=== PATIENT | male | born 1960 | race Caucasian/White ===

== ENCOUNTER 2024-07-26 19:41 | Emergency (ER) | payer MEDICARE, OTHER ==
[2024-07-26] MEDS ORDERED: Sodium Chloride 0.9% 10 ML Syringe FLUSH PRN (19:59)
[2024-07-26 20:08] LABS: BASOPHILS PERCENT AUTO 0.3 % (0.3-3.8); EOSINOPHILS ABSOLUTE AUTO 0.1 x10-3/uL (0.0-0.6); EOSINOPHILS PERCENT AUTO 1.1 % (0.1-6.8); HEMATOCRIT 45.8 % (38.3-50.1); HEMOGLOBIN 15.2 g/dL (12.9-17.7); LYMPHOCYTES ABSOLUTE AUTO 1.1 x10-3/uL (0.5-4.5); LYMPHOCYTES PERCENT AUTO 9.4 % (15.8-45.3); MEAN CORPUSCULAR HEMOGLOBIN 30.2 pg (27.0-33.3); MEAN CORPUSCULAR HGB CONC 33.1 g/dL (28.7-35.3); MEAN CORPUSCULAR VOLUME 91.1 fL (80.8-98.7); MEAN PLATELET VOLUME 8.3 fL (6.7-11.0); MONOCYTES ABSOLUTE AUTO 0.8 x10-3/uL (0.0-1.2); MONOCYTES PERCENT AUTO 6.9 % (5.5-15.2); NEUTROPHILS ABSOLUTE AUTO 10.1 x10-3/uL (1.7-6.9); NEUTROPHILS PERCENT AUTO 82.4 % (40.3-71.8); PLATELET COUNT,PLT 210 x10(3)uL (117-477); RED BLOOD CELL COUNT 5.03 x10(6)uL (3.90-5.90); RED CELL DISTRIBUTION WIDTH 14.3 % (12.4-15.0); WHITE BLOOD CELL COUNT,WBC 12.2 x10-3/uL (3.2-10.1)
[2024-07-26 20:12] LABS: BILIRUBIN,URINE NEGATIVE (NEGATIVE); GLUCOSE,URINE NORMAL (NORMAL); KETONES,URINE NEGATIVE (NEGATIVE); LEUKOCYTE ESTERASE,URINE LARGE (NEGATIVE); NITRITE,URINE NEGATIVE (NEGATIVE); OCCULT BLOOD,URINE MODERATE (NEGATIVE); PROTEIN,URINE TRACE mg/dL (NEGATIVE); UROBILINOGEN,URINE NORMAL (NEGATIVE)
[2024-07-26] MEDS: Sodium Chloride 0.9% 1,000 ML IV ONE (20:16)
[2024-07-26] MEDS: Tamsulosin 0.4 MG Cap.ER PO ONE (20:16)
[2024-07-26 20:17] LABS: BLOOD UREA NITROGEN,BUN 30 mg/dL (7-18); BUN/CREATININE RATIO 23.1 (9-20); CARBON DIOXIDE,CO2 30 mmol/L (21-32); CHLORIDE,CL 104 mmol/L (100-110); CREATININE 1.3 mg/dL (0.70-1.30); ESTIMATED GFR 61 mL/min (>60); GLUCOSE RANDOM 103 mg/dL (80-116); SODIUM,NA 143 mmol/L (135-145)
[2024-07-26] MEDS: HYDROmorphone 2 MG/ML SDV IVPUSH ONE (20:17)
[2024-07-26] MEDS: Ondansetron 4 MG/2 ML SDV IVPUSH ONE (20:18)
[2024-07-26 20:19] LABS: INR 1.03 (1.00-1.24); PROTHROMBIN TIME 10.7 sec (9.0-11.1)
[2024-07-26 20:23] LABS: A/G RATIO 1.1; ALANINE AMINOTRANSFERASE,ALT 41 U/L (12-36); ALBUMIN 3.7 g/dL (3.2-4.6); ALKALINE PHOSPHATASE 92 IU/L (56-112); ASPARTATE AMNIOTRANSFERASE,AST 17 IU/L (5-25); BILIRUBIN TOTAL 0.7 mg/dL (0.1-1.3); MAGNESIUM 1.7 mg/dL (1.8-2.5); PROTEIN TOTAL,TP 7.2 g/dL (6.0-8.0)
[2024-07-26 20:24] LABS: APPEARANCE,URINE SLIGHTLY CLOUDY (CLEAR); BACTERIA,URINE OCCASIONAL (NS); COLOR,URINE YELLOW (YELLOW); RBC,URINE 0-5 (0-5); SQUAMOUS EPITHELIAL CELLS,UR OCCASIONAL (NS,R,O)
[2024-07-26 20:25] LABS: MUCUS,URINE FEW (NS)
[2024-07-26] MEDS: Magnesium Oxide 400 MG Tab PO ONE (20:45)
[2024-07-26] MEDS: LORazepam 0.5 MG Tab PO ONE (20:46)
[2024-07-26] MEDS: Potassium Chloride 20 MEQ Tab.ER PO ONE (20:46)
[2024-07-26] MEDS: Cephalexin 250 MG Cap PO ONE (21:31)
[2024-07-26 21:57] VITALS: BP 138/90; PULSE 95
== END 2024-07-26 21:43 | disposition home or self-care (01) ==
LOC: FB.ED 19:41
DX: N13.2 Hydronephrosis with renal and ureteral calculous obstruction (principal); N39.0 Urinary tract infection, site not specified; R31.9 Hematuria, unspecified; I25.10 Atherosclerotic heart disease of native coronary artery without angina pectoris; Z88.6 Allergy status to analgesic agent; Z88.8 Allergy status to other drugs, medicaments and biological substances; Z95.5 Presence of coronary angioplasty implant and graft
CPT/HCPCS: 36415; 74176; 80053; 81001; 83690; 83735; 85025; 85610; 86140; 87086; 96361; 96374; 96375; 99284; A9270; J1171; J2405; J7030